=== PATIENT | male | born 1985 | race Asian ===

== ENCOUNTER 2016-12-07 16:03 | Emergency (ER) | payer OTHER ==
[~2016-12-07 16:03] MED LIST: HYDR1TAB69 PO; IBUP400T22 PO
[2016-12-07 16:12] VITALS: BP 143/91; PULSE 106; RESP 20; O2SAT 98
--- NOTE | 2016-12-07 17:41 | ED.REPORT ---
HPI-Neurologic Deficit Date of Service December 07, 2016 ED Provider: History of Present Illness: woke up feeling weird. primary care is [facility] Woke up around 2 am, feel asleep around 11. no one was with him when he fell asleep. nothing was missing from the house. denies pain. denies thoughts of self harm or harm to others Nursing Notes Stated Complaint: BLOOD CHECK Chief Complaint: General Complaint Nursing Notes Reviewed: Yes Allergies: Coded Allergies: Shellfish (Verified Allergy, Severe, Anaphylaxis, 08/10/11) penicillin G (Verified Allergy, Unknown, unknown, 12/07/16) vancomycin (Verified Allergy, Unknown, rash, red all over, 12/07/16) Scheduled PRN Hydrocod/APAP-Expunged, Do Not Renew! (VICODIN 5/500-Expunged Drug, Do Not Renew ) 1 Each Tablet 1 EACH PO Q4 PRN PRN IBUPROFEN-Expunged Drug, Do Not Renew! (IBUPROFEN-Expunged Drug, Do Not Renew!) 400 Mg Tablet 400 MG PO TID PRN PRN General Time Seen by Provider: 17:41 Chief Complaint Other (feeling weird) Hx Obtained From: Patient Sudden in Onset?: Yes Past Medical History Past Medical History Denies: Asthma, Diabetes mellitus Past Surgical History neck surgery at [facility] [place], had bacteria infusion in spine Smoking History Former Smoker (chews 6 times a day for 10 years) Social History Alcohol Use: 1-3 per week Drug Use: Denies drug use Occupation single, lives by self no work or school 12/07/2016 Ambulatory Status Independent Review of Systems Basic Review of Systems ENT: Hearing NL, No pain, No nasal congestion, No pharyngeal pain Endocrine: No cold intolerance, No heat intolerance, No weight gain, No weight loss Allergy / Immune: No allergy Physical Exam Initial Vital Signs Vital Signs (First) Date Time Temp Pulse Resp B/P Pulse Ox O2 Delivery O2 Flow Rate FiO2 12/07/16 16:12 36.4 106 20 143/91 98 Initial VS: Reviewed, Vital signs normal ENT: Mucous membranes moist, Conjunctiva normal, No scleral icterus Neck: Supple, Non-tender, Full range of motion Abdomen / GI: Soft, Non-tender, No guarding, No rebound, No distention Back: No CVA tenderness Lymphatic: No lymphadenopathy Extremities: Vascular intact, Neuro intact, No swelling, No tenderness Skin: Warm, Dry, No cyanosis Psychiatric: Mood/affect normal, Behavior normal, Normal thought content General/Constitutional: Awake, Alert, No acute distress, Well appearing, Well developed, Well hydrated, Well nourished, Cooperative, Not toxic appearing Head / Eyes: Atraumatic, Normocephalic, PERRL, EOMI Respiratory / Chest: Atraumatic, Breath sounds NL, Breath sounds = bilat Cardiovascular: Heart rate NL, Regular rhythm, Heart sounds NL, No gallop Neurologic: Oriented X3, Speech NL, No motor deficits Interpretation & Diagnostics Lab Results Interpretation Test 12/07/16 17:04 Hold Urine Received (Received) Lab Results Interpretation: u tox screen is negative Re-Eval/Medical Decision Med Decision/Clinical Course 31 year old male presents to the ER requesting a drug screen, States he woke around 2 am this morning feeling weird. No one was with him at the time. Nothing was missing. No sign of skull fracture or menigitis Discharge & Departure Impression: Primary Impression: Disturbed sleep rhythm Disposition: Home Additional Instructions: At this time, your urine drug tox screen is negative. Please follow with primary care and your counselor. REturn with any concerns. Referrals: Armando Connolly MD (PCP) EDSupervising Provider for APC: Wes Barragan MD copies to: Armando Connolly MD, Sue ARNP December 07, 2016 17:41
== END 2016-12-07 18:05 | disposition home or self-care (01) ==
LOC: SED 16:03
DX: G47.9 Sleep disorder, unspecified (principal); Z87.891 Personal history of nicotine dependence; Z88.0 Allergy status to penicillin; Z88.1 Allergy status to other antibiotic agents; Z91.013 Allergy to seafood